=== PATIENT | female | born 1990 | race Caucasian/White ===

== ENCOUNTER 2018-04-08 14:05 | Emergency (ER) | payer SELFPAY ==
[~2018-04-08] VITALS: Ht 160 cm; Wt 77.1 kg
[2018-04-08 14:07] VITALS: BP 154/85
[2018-04-08] MEDS ORDERED: MORPHINE SULFATE 4 MG/ML SYR/VIAL IV ONE (14:45)
[2018-04-08] MEDS ORDERED: MORPHINE SULF INJ 2 MG/ML SYRINGE 1ML IV ONE (16:45)
== END 2018-04-08 17:09 | disposition home or self-care (01) ==
LOC: EDUNIT# 14:05 → EDBD 14:05 → ER 14:05
DX: S42.301A Unspecified fracture of shaft of humerus, right arm, initial encounter for closed fracture (principal); S39.012A Strain of muscle, fascia and tendon of lower back, initial encounter; W19.XXXA Unspecified fall, initial encounter; Y93.89 Activity, other specified; Y99.8 Other external cause status; Y92.89 Other specified places as the place of occurrence of the external cause
CPT/HCPCS: 29105; 72100; 72220; 73060; 73090; 99284; J2270; 29125